=== PATIENT | male | born 1935 | race African-American/Black ===

== ENCOUNTER 2019-02-18 04:04 | Inpatient (IN) | payer MEDICARE ==
[2019-02-18] MEDS ORDERED: methylPREDNISolone Sod Succ/PF 125 MG/2 ML VIAL ONE (04:22)
[2019-02-18] MEDS ORDERED: diphenhydrAMINE 50 MG/ML VIAL ONE (04:22)
[2019-02-18] MEDS ORDERED: Famotidine/PF 20 mg/2ml Vial ONE (04:23)
[2019-02-18] MEDS ORDERED: EPINEPHrine 1 MG/ML AMP ONE (04:27)
[2019-02-18] MEDS ORDERED: Succinylcholine Chloride 20 MG/ML 10 ml SYRINGE FS ONE (04:36)
[2019-02-18] MEDS ORDERED: Propofol 1,000 MG/100 ML VIAL IV ONE (04:42)
[2019-02-18] MEDS ORDERED: Fentanyl 100 MCG/2 ML VIAL ONE ×2 (05:04→05:17)
[2019-02-18 05:09] LABS: Actual Bicarbonate (HCO3a) 19.1 mEq/L (22-28); Analyzer IN Cardio ER; CO2 Tension 33.2 mmHg (35.0-45.0); Calcium, Ionized 1.18 mmol/L (1.12-1.30); Carboxyhemoglobin (COHb) 9.4 gm% (0.0-3.0); Hemoglobin (Hb) 15.2 g/dL (14.0-18.0); O2 Tension (PaO2) 256.1 mmHg (> 60.0); Potassium - ABG Lab 3.85 mmol/L (3.70-5.30); pH, Arterial 7.38 (7.35-7.45)
[2019-02-18 05:12] LABS: Puncture Site LRA
[2019-02-18] MEDS ORDERED: Lorazepam 2 MG/ML VIAL ONE (05:13)
[2019-02-18] MEDS ORDERED: fentaNYL Citrate/PF 2,000 MCG in Sodium Chloride 0.9% 60 ML IV SCH (05:17)
[2019-02-18 05:20] LABS: #Basophils 0.1 thou/uL (0.0-0.2); #Lymphocytes 1.5 thou/uL (1.20-3.40); #Monocytes 0.6 thou/uL (0.11-0.59); #Neutrophils 5.4 thou/uL (1.40-6.50); %Basophils 1.1 % (0.0-1.0); %Eosinophils 0.3 % (0.0-10.0); %Lymphocytes 19.9 % (21.0-51.0); %Monocytes 8.2 % (0.0-10.0); %Neutrophils 70.5 % (42.0-75.0); Hemoglobin 14.6 g/dL (14.0-18.0); Mean Corpuscular HGB CONC 31.4 g/dL (32.0-36.0); Mean Corpuscular Hemoglobin 23.7 pg (27.0-31.0); Mean Corpuscular Volume 75.7 fL (78.0-98.0); Mean Platelet Volume 9.7 fL (7.4-10.4); Platelet Count 257 thou/uL (130-400); RBC Distribution Width 13.7 % (11.5-14.5); Red Blood Cell (RBC) Count 6.17 mill/uL (4.70-6.10); White Blood Cell (WBC) Count 7.6 thou/uL (4.8-10.8)
[2019-02-18 05:35] LABS: ALT (SGPT) 9 U/L (8-55); AST (SGOT) 9 U/L (5-34); Albumin 3.5 g/dL (3.4-4.8); Alkaline Phosphatase 62 U/L (40-150); Anion Gap 13 mmol/L (10-20); BUN (Urea Nitrogen) 27 mg/dL (8.4-25.7); Bilirubin, Total 0.4 mg/dL (0.2-1.2); Calc. Creatinine Clearance 0 mL/min (70-130); Carbon Dioxide 20 mmol/L (23-31); Chloride 106 mmol/L (98-107); Estimated GFR-MDRD 68; Globulin 3.5 g/dL (2.4-3.5); Glucose 144 mg/dL (83-110); Potassium 4.1 mmol/L (3.5-5.1); Sodium 135 mmol/L (136-145)
[2019-02-18] MEDS ORDERED: Acetaminophen 325 MG TAB PO PRN (06:15)
[2019-02-18] MEDS ORDERED: HumaLOG 300 UNITS/3 ML VIAL SC PRN (06:20)
[2019-02-18] MEDS ORDERED: Dextrose 50% Abboject 50 ML SYRINGE SLOW IVP PRN (06:20)
[2019-02-18] MEDS ORDERED: Dextrose 5% in Water 1,000 ML IV PRN (06:20)
[2019-02-18] MEDS ORDERED: Morphine 2 MG/ML SYRINGE SLOW IVP PRN (06:28)
[2019-02-18] MEDS ORDERED: Lorazepam 2 MG/ML VIAL SLOW IVP PRN (06:28)
[2019-02-18] MEDS ORDERED: Fentanyl BOLUS 250 ML IVPB PRN (06:28)
[2019-02-18] MEDS ORDERED: Propofol BOLUS 1,000 MG/100 ML VIAL IV PRN (06:28)
[2019-02-18] MEDS ORDERED: DISCONTINUE PREVIOUS NARCOTIC PAIN MEDICATIONS AND BENZODIAZEPINES FS SCH (06:28)
[2019-02-18 06:38] VITALS: BMI 29.6
--- NOTE | 2019-02-18 07:04 | HP ---
CHIEF COMPLAINT: Swelling of the tongue. HISTORY OF PRESENT ILLNESS: The patient is an 83-year-old male who woke up this morning around 4, woke his daughter up and started to have significant amount of tongue swelling. According to the patient's daughter, he had no trouble breathing. However, the patient's daughter drove him to the ER. In the ER, he was given IV Pepcid, IV steroids. He was given IV Benadryl and at this time given significant swelling of his tongue, the patient was intubated for precautionary reasons. I was told that the patient had no respiratory distress; however given the amount of swelling for safety purposes he was intubated. The patient's daughter does not recall starting of any new medications. She does state that he is on an VLADIMIR inhibitor; however, he takes it normally in the morning. Also, the patient has an allergy to barbecue sauce, which he gets a similar reaction. PAST MEDICAL HISTORY: Limited since the patient the patient's daughter is not really aware of all his medical history. She did say that he is a diabetic and he has high blood pressure and high cholesterol. PAST SURGICAL HISTORY: He denies any surgical history. ALLERGIES: HE IS ALLERGIC TO ASPIRIN AND GRAPEFRUIT. MEDICATION: The patient's family does not know the list. There are no records in the computer. I have asked the family to bring in his medication list. REVIEW OF SYSTEMS: Unable to obtain. SOCIAL HISTORY: According to the family, they deny history of drinking or drug use. He is a full code. Lives with the family. However, he does smoke half a pack a day. LABORATORY RESULTS: WBC of 7.6, hemoglobin of 14.6, hematocrit of 46.7, his platelets are 257. Chemistry: Sodium of 135, potassium of 4.1, BUN of 27, creatinine of 1.23, glucose of 144, troponin is less than 1. IMAGING: The patient did have a chest x-ray and upon my interpretation, the patient does have some mild vascular congestion and also I do see a his ET tube, which is above the selena. PHYSICAL EXAMINATION: VITAL SIGNS: Are as of the following; temperature of temperature of 98.8, heart rate of 120, blood pressure of 190/70 and oxygen saturation 98%. GENERAL: He is awake, intubated. HEENT: Normocephalic, atraumatic. No lymphadenopathy noted. Tongue appears to be significantly swollen. Pupils are equal and reactive to light. LUNGS: Mild rhonchi heard all over. CV: S1 and S2 present. No murmurs, rubs, or gallops. ABDOMEN: Soft and nontender. Bowel sounds present x2. EXTREMITIES: No edema. Pedal pulses present x2. NEUROVASCULAR: The patient is moving all 4 extremities and he is awake, appears to be very agitated. SKIN: No cuts, lesions, or bruises noted. ASSESSMENT AND PLAN: The patient is a very pleasant 83-year-old male who presents to the hospital for angioedema. 1. Acute respiratory failure. The patient was intubated for airway protection given his significant amount of swelling. The patient currently is on propofol and fentanyl. We will continue that. We will also start the patient on some DuoNeb. He did have some rhonchi in his lungs. 2. Angioedema, possibly secondary to lisinopril. I have to ask the family to bring in all his medications and if he is on lisinopril, we will have to discontinue that. 3. Diabetes. We will put the patient on sliding scale insulin. 4. Deep venous thrombosis prophylaxis. We will put the patient on subcutaneous Lovenox. Job ID: [id number]
[2019-02-18 07:18] LABS: Actual Bicarbonate (HCO3a) 17.1 mEq/L (22-28); Base Excess (BEa) -8.2 mEq/L (-2.0 to +3.0); CO2 Tension 34.6 mmHg (35.0-45.0); Calcium, Ionized 1.14 mmol/L (1.12-1.30); Carboxyhemoglobin (COHb) 6.2 gm% (0.0-3.0); Hemoglobin (Hb) 13.8 g/dL (14.0-18.0); Potassium - ABG Lab 3.65 mmol/L (3.70-5.30); pH, Arterial 7.31 (7.35-7.45)
[2019-02-18 07:25] LABS: Puncture Site RB
--- NOTE | 2019-02-18 07:54 | RAD ---
RADIOGRAPH CHEST 1 VIEW: DATE: 02/18/2019 TIME: 5:13 AM HISTORY: 83-year-old male with respiratory failure. Status post intubation COMPARISON: 12/16/2005 FINDINGS: The following are all new findings since the prior study: Endotracheal tube with distal tip overlying mid thoracic trachea. Esophagogastric tube with distal ti p curled at fundus of stomach. Subsegmental atelectasis at the bilateral central lower lung zones. No pulmonary edema. This is supine positioning, insensitive for pneumothorax detection. IMPRESSION: 1. Status post intubation with endotracheal tube and esophagogastric tube. 2. Extensive bibasilar subsegmental atelectasis.
[2019-02-18] MEDS ORDERED: methylPREDNISolone Sod Succ 40 MG VIAL IVP SCH (09:00)
--- NOTE | 2019-02-18 10:36 | CON ---
DATE OF CONSULTATION: HISTORY OF PRESENT ILLNESS: An 83-year-old gentleman, in the ICU bed 11, presented last night with progressive tongue and mouth swelling. Daughter is at the bedside. She states he sees Dr. Obrien, additionally sees [facility]. He is relatively healthy. Smokes maybe half pack a day. Apparently, had similar symptoms in the past, which was felt to be due to barbecue sauce. Unclear what transpired in the ER, but I guess because of progressive respiratory failure, he was intubated. He received fentanyl, Ativan, Diprivan, Amidate 20 paralytic, Solu-Medrol 125. He was intubated. Since his condition worsened apparently. He is now on the vent. Sedated, though he is not responsive, sedation is being just withheld. PAST MEDICAL HISTORY: Diabetes and hypertension. PAST SURGICAL HISTORY: None. His list of medicine includes 1. Lisinopril/hydrochlorothiazide 20/12.5 a day. 2. Plavix. 3. Aspirin. 4. Metformin. 5. Simvastatin 20. Otherwise, no previous allergies except for aspirin . REVIEW OF SYSTEMS: Otherwise unobtainable. He is intubated on the vent. PHYSICAL EXAMINATION: VITAL SIGNS: Pulse 74, blood pressure 127/80 sats 100, respiratory rate 16. CHEST: Decreased breath sounds. No wheezing. CARDIAC: Normal S1, S2. No gallops. ABDOMEN: No mass. PO2 is 61, pCO2 of 24, pH of 7.31 at rate of 16, 60%, pressure support 10, PEEP of 5. White count 7000, H and H unremarkable. Lytes, creatinine 1.23. IMPRESSION: 1. Angioedema, possibly VLADIMIR related. 2. Hypertension. 3. Diabetes. 4. On Plavix, probably has peripheral vascular disease. PLAN: We will try and get additional information from family. In the meantime, looks like his swelling appears to have decreased. We will leave intubated overnight. Continue supportive care. Consider ENT evaluation. Avoid VLADIMIR. This is a 45-minute critical care time. Job ID: [id number]
[2019-02-18] MEDS: Dexamethasone 4 mg/ml Vial SLOW IVP SCH ×3 (10:43→21:33)
[2019-02-18] MEDS: Enoxaparin Sodium 40 MG/0.4 ML SYRINGE SC SCH (10:43)
[2019-02-18] MEDS: Propofol 1,000 MG/100 ML VIAL IV PRN (12:48)
--- NOTE | 2019-02-18 14:02 | PDOC.PN ---
- Subjective Encounter Start Date: 02/18/19 Encounter Start Time: 13:57 Patient seen and examined - Objective Resuscitation Status - Order Detail: 02/18/19 06:15 Resuscitation Status Routine Resuscitation Status: FULL: Full Resuscitation Vital Signs & Weight: Vital Signs (12 hours) Temp Pulse Resp BP BP Pulse Ox 02/18/19 12:41 68 100/47 L 02/18/19 10:35 66 109/58 L 02/18/19 07:52 78 106/63 02/18/19 06:15 90 135/66 02/18/19 06:14 97.8 F 85 24 H 135/66 100 Weight Admit Weight 183 lb 6.793 oz Weight 183 lb 6.793 oz Most Recent Monitor Data Heart Rate from ECG 68 NIBP 103/50 NIBP BP-Mean 67 Respiration from ECG 18 SpO2 100 Result Diagrams: 02/18/19 04:58 02/18/19 04:58 Phys Exam - Physical Examination Constitutional: NAD HEENT: PERRLA, moist MMs intubated Neck: no nodes, no JVD, supple Respiratory: no wheezing, no rales, no rhonchi Cardiovascular: RRR, no significant murmur, no rub Gastrointestinal: soft, non-tender, no distention Musculoskeletal: no edema, pulses present Dx/Plan (1) Angioedema Code(s): T78.3XXA - ANGIONEUROTIC EDEMA, INITIAL ENCOUNTER Status: Acute (2) Hypertension Code(s): I10 - ESSENTIAL (PRIMARY) HYPERTENSION Status: Acute - Plan * remains intubated * on steroids * will do IVFs while patient is intubated for now * SBT in AM * no other changes in plan of care * case and plan d/w patient's son at length via phone, Chinedu [phone], he understood and agreed with this plan.
[2019-02-18] MEDS ORDERED: Dexamethasone 4 mg/ml Vial SLOW IVP SCH (23:00)
[2019-02-19] MEDS: Propofol 1,000 MG/100 ML VIAL IV PRN (02:05)
[2019-02-19] MEDS: Famotidine/PF 20 mg/2ml Vial SLOW IVP SCH (04:53)
[2019-02-19 06:09] LABS: Anion Gap 12 mmol/L (10-20); BUN (Urea Nitrogen) 26 mg/dL (8.4-25.7); Calc. Creatinine Clearance 66 mL/min (70-130); Calcium 8.8 mg/dL (7.8-10.44); Carbon Dioxide 20 mmol/L (23-31); Chloride 110 mmol/L (98-107); Estimated GFR-MDRD 86; Glucose 150 mg/dL (83-110); Potassium 4.1 mmol/L (3.5-5.1); Sodium 138 mmol/L (136-145)
[2019-02-19 06:21] LABS: #Lymphocytes 0.5 thou/uL (1.20-3.40); #Monocytes 0.5 thou/uL (0.11-0.59); #Neutrophils 6.6 thou/uL (1.40-6.50); %Eosinophils 0.2 % (0.0-10.0); %Lymphocytes 6.9 % (21.0-51.0); %Monocytes 6.7 % (0.0-10.0); %Neutrophils 86.1 % (42.0-75.0); Mean Corpuscular HGB CONC 31.5 g/dL (32.0-36.0); Mean Corpuscular Hemoglobin 23.5 pg (27.0-31.0); Mean Corpuscular Volume 74.6 fL (78.0-98.0); Mean Platelet Volume 9.9 fL (7.4-10.4); Platelet Count 230 thou/uL (130-400); RBC Distribution Width 13.6 % (11.5-14.5); Red Blood Cell (RBC) Count 5.56 mill/uL (4.70-6.10); White Blood Cell (WBC) Count 7.7 thou/uL (4.8-10.8)
[2019-02-19 07:47] LABS: Actual Bicarbonate (HCO3a) 22.3 mEq/L (22-28); CO2 Tension 36.6 mmHg (35.0-45.0); Calcium, Ionized 1.21 mmol/L (1.12-1.30); Carboxyhemoglobin (COHb) 1.1 gm% (0.0-3.0); O2 Tension (PaO2) 214.8 mmHg (> 60.0); Potassium - ABG Lab 4.13 mmol/L (3.70-5.30)
[2019-02-19 07:50] LABS: Puncture Site RB
[2019-02-19] MEDS ORDERED: DC Sedation Protocol FS ONE (08:35)
[2019-02-19] MEDS ORDERED: Fluconazole In NaCl,Iso-Osm 100 MG in Premix Bag 1 BAG IVPB SCH (09:00)
[2019-02-19] MEDS ORDERED: Dexamethasone 4 mg/ml Vial SLOW IVP SCH (09:00)
[2019-02-19] MEDS: Enoxaparin Sodium 40 MG/0.4 ML SYRINGE SC SCH (09:46)
[2019-02-19] MEDS: Fluconazole In NaCl,Iso-Osm 100 MG in Admixture Fee 1 EACH IVPB SCH (09:58)
--- NOTE | 2019-02-19 10:01 | PRG ---
DATE OF SERVICE: 02/19/2019 SUBJECTIVE: An 83-year-old gentleman, sedation withheld. He is awake, alert, and responsive. His tongue is less swollen. His endotracheal tube cuff was deflated. He has a leak suggesting probably not much edema in the back of the throat. OBJECTIVE: CHEST: Reveals no wheezing or crackles. CARDIAC: Sinus tach. ABDOMEN: Soft. VITAL SIGNS: Blood pressure 130/60, saturations are 100%, respirations are 18, and pulse 80. LABORATORY DATA: His lab otherwise shows white count 7000, H and H unremarkable. Platelet count is normal. His PO2 is 214, pCO2 of 36, pH 7.40 at a rate of 10, and PEEP of 5. Lytes are normal. IMPRESSION: 1. Status post angioedema, felt to be secondary to VLADIMIR. 2. Hypertension. 3. Diabetes. PLAN: Avoid VLADIMIR. Wean and extubate. Supportive care, PT. One-half hour of critical care time. Job ID: [id number]
--- NOTE | 2019-02-19 10:10 | RAD ---
CHEST 1 VIEW: COMPARISON: 02/18/2019. HISTORY: Ventilated patient. Respiratory distress. FINDINGS: Interval removal of endotracheal and orogastric tube. Chronic changes in the lung parenchyma. No pn eumothorax. IMPRESSION: Chronic change of the lung parenchyma. POS: OFF
[2019-02-19] MEDS ORDERED: diphenhydrAMINE 50 MG/ML VIAL IVP PRN (14:37)
--- NOTE | 2019-02-19 14:43 | PDOC.PN ---
- Subjective Encounter Start Date: 02/19/19 Encounter Start Time: 14:39 Patient seen and examined, no new issues, extubated this AM, says he feels well. - Objective Resuscitation Status - Order Detail: 02/18/19 06:15 Resuscitation Status Routine Resuscitation Status: FULL: Full Resuscitation Vital Signs & Weight: Vital Signs (12 hours) Temp Pulse Resp BP Pulse Ox 02/19/19 11:20 102 H 21 H 98 02/19/19 08:35 98 02/19/19 08:00 100 02/19/19 07:30 84 130/61 02/19/19 05:57 16 02/19/19 04:00 16 02/19/19 03:00 98.8 F Weight Admit Weight 183 lb 6.793 oz Weight 183 lb 6.793 oz Most Recent Monitor Data Heart Rate from ECG 80 NIBP 130/58 NIBP BP-Mean 82 Respiration from ECG 21 SpO2 97 I&O: 02/18/19 02/19/19 02/20/19 06:59 06:59 06:59 Intake Total 243.2 Output Total 1200 37 Balance -956.8 -37 Result Diagrams: 02/19/19 05:17 02/19/19 05:17 Additional Labs: Accuchecks 02/19/19 02/19/19 02/19/19 12:13 06:07 00:35 POC Glucose 148 H 143 H 142 H 02/18/19 02/18/19 18:05 14:32 POC Glucose 136 H 149 H Phys Exam - Physical Examination Constitutional: NAD HEENT: PERRLA, moist MMs, sclera anicteric Neck: no nodes, no JVD, supple Respiratory: no wheezing, no rales, no rhonchi Cardiovascular: RRR, no significant murmur, no rub Gastrointestinal: soft, non-tender, no distention Musculoskeletal: no edema, pulses present Dx/Plan (1) Angioedema Code(s): T78.3XXA - ANGIONEUROTIC EDEMA, INITIAL ENCOUNTER Status: Acute (2) Hypertension Code(s): I10 - ESSENTIAL (PRIMARY) HYPERTENSION Status: Acute - Plan * dexamethasone decreased * will start IV benadryl q8hrs PRN for allerigc reaction, patient did have a full body rash this am with pruritis? * extubated today, monitor in ICU for now, resume diet slowly * no other changes in plan of care for now * case and plan d/w patient at length, he understood and agreed with this plan.
[2019-02-20] MEDS: Famotidine/PF 20 mg/2ml Vial SLOW IVP SCH (04:54)
[2019-02-20] MEDS: Enoxaparin Sodium 40 MG/0.4 ML SYRINGE SC SCH (08:20)
[2019-02-20] MEDS: Fluconazole In NaCl,Iso-Osm 100 MG in Admixture Fee 1 EACH IVPB SCH (08:21)
[2019-02-20] MEDS ORDERED: DC Sedation Protocol FS ONE (08:50)
[2019-02-20] MEDS ORDERED: metFORMIN 500 MG TAB PO SCH (09:00)
--- NOTE | 2019-02-20 09:53 | PDOC.PN ---
- Subjective Encounter Start Date: 02/20/19 Encounter Start Time: 09:52 Patient seen and examined, doing better, no new issues. - Objective Resuscitation Status - Order Detail: 02/18/19 06:15 Resuscitation Status Routine Resuscitation Status: FULL: Full Resuscitation Vital Signs & Weight: Vital Signs (12 hours) Temp Pulse Resp Pulse Ox 02/20/19 08:00 97.6 F 02/20/19 07:53 98 02/20/19 06:45 98 02/20/19 06:44 67 19 100 02/20/19 04:00 98.0 F 02/20/19 00:00 98.2 F Weight Admit Weight 183 lb 6.793 oz Weight 183 lb 6.793 oz Most Recent Monitor Data Heart Rate from ECG 77 NIBP 159/71 NIBP BP-Mean 100 Respiration from ECG 26 SpO2 100 I&O: 02/19/19 02/20/19 02/21/19 06:59 06:59 06:59 Intake Total 243.2 685.3 Output Total 1200 1366 0 Balance -956.8 -680.7 0 Result Diagrams: 02/19/19 05:17 02/19/19 05:17 Additional Labs: Accuchecks 02/20/19 02/20/19 02/20/19 08:20 05:43 00:31 POC Glucose 188 H 104 134 H 02/19/19 02/19/19 19:07 12:13 POC Glucose 146 H 148 H Phys Exam - Physical Examination Constitutional: NAD HEENT: PERRLA, moist MMs Neck: no nodes, no JVD Respiratory: no wheezing, no rales, no rhonchi, clear to auscultation bilateral Cardiovascular: RRR, no significant murmur, no rub Gastrointestinal: soft, non-tender, no distention Musculoskeletal: no edema, pulses present Dx/Plan (1) Angioedema Code(s): T78.3XXA - ANGIONEUROTIC EDEMA, INITIAL ENCOUNTER Status: Acute (2) Hypertension Code(s): I10 - ESSENTIAL (PRIMARY) HYPERTENSION Status: Acute - Plan * advance diet slowly * start ARB for BP for now, no more ACEi * move to floor out of ICU * cont IV steroids * possible DC in 24-48hrs depending on patient condition * case and plan d/w pt at length, he understood and agreed with this plan
--- NOTE | 2019-02-20 10:03 | PRG ---
DATE OF SERVICE: 02/20/2019 SUBJECTIVE: This morning, he is awake, alert, and responsive. He is eager to go home. OBJECTIVE: VITAL SIGNS: Blood pressure 159/71, saturations are 98% on room air, respiratory rate 18. HEENT: His tongue is less swollen. The whitish patches are less prominent. CHEST: No wheezing or crackles. CARDIAC: Normal S1 and S2. No gallops. ASSESSMENT: 1. Angioedema, probably. 2. Possibly thrush. 3. Hypertension. PLAN: He can be discharged home. No longer at least take VLADIMIR. He can probably go home on Norvasc. Follow up with his primary care physician. Job ID: [id number]
[2019-02-20] MEDS: Fluconazole 100 MG TAB PO SCH (10:14)
[2019-02-20] MEDS: metFORMIN 500 MG TAB PO SCH ×2 (10:16→20:11)
[2019-02-20] MEDS: Amlodipine 5 MG TAB PO SCH (10:17)
[2019-02-21] MEDS: Famotidine/PF 20 mg/2ml Vial SLOW IVP SCH (05:24)
[2019-02-21] MEDS: metFORMIN 500 MG TAB PO SCH (08:26)
[2019-02-21] MEDS: Enoxaparin Sodium 40 MG/0.4 ML SYRINGE SC SCH (08:26)
[2019-02-21] MEDS: Amlodipine 5 MG TAB PO SCH (08:26)
[2019-02-21] MEDS: Fluconazole 100 MG TAB PO SCH (08:26)
--- NOTE | 2019-02-21 08:59 | PRG ---
DATE OF SERVICE: 02/21/2019 SUBJECTIVE: This morning, he is much better. His tongue is less swollen. The yeast on his throat also looks much better. OBJECTIVE: VITAL SIGNS: Blood pressure is 164/74, pulse 72, temperature 98. CHEST: Decreased breath sounds. No wheezing. CARDIAC: Normal S1 and S2. No gallops. ABDOMEN: No masses. IMPRESSION: Angioedema secondary to VLADIMIR, respiratory failure improved, thrush. He can be discharged home on blood pressure medication. Obviously avoid VLADIMIR. Job ID: [id number]
--- NOTE | 2019-02-21 09:54 | PDOC.PN ---
- Subjective Encounter Start Date: 02/21/19 Encounter Start Time: 12:10 Subjective: Patient reports feeling back to normal. No tongue swelling. No trouble -: breathing or swallowing. Ready to go home. - Objective Resuscitation Status - Order Detail: 02/18/19 06:15 Resuscitation Status Routine Resuscitation Status: FULL: Full Resuscitation MAR Reviewed: Yes Vital Signs & Weight: Vital Signs (12 hours) Temp Pulse Resp BP BP Pulse Ox 02/21/19 08:26 72 164/74 H 02/21/19 08:20 93 L 02/21/19 08:07 98.2 F 72 18 164/74 H 93 L Weight Admit Weight 183 lb 6.793 oz Weight 183 lb 6.793 oz Most Recent Monitor Data Heart Rate from ECG 106 NIBP 154/83 NIBP BP-Mean 106 Respiration from ECG 26 SpO2 100 I&O: 02/20/19 02/21/19 02/22/19 06:59 06:59 06:59 Intake Total 685.3 2120 Output Total 1366 175 Balance -680.7 1945 Result Diagrams: 02/19/19 05:17 02/19/19 05:17 Additional Labs: Accuchecks 02/21/19 02/20/19 02/20/19 04:46 19:55 16:41 POC Glucose 93 161 H 119 H Phys Exam - Physical Examination Constitutional: NAD HEENT: moist MMs, oral pharynx no lesions tongue normal in size, no edema in mouth or lips Respiratory: no wheezing, no rales, no rhonchi, clear to auscultation bilateral Cardiovascular: RRR, no significant murmur Gastrointestinal: soft, positive bowel sounds Neurological: non-focal, moves all 4 limbs Psychiatric: normal affect, A&O x 3 Dx/Plan (1) Angioedema Code(s): T78.3XXA - ANGIONEUROTIC EDEMA, INITIAL ENCOUNTER Status: Acute Comment: markedly improved, due to VLADIMIR-I, cleared to d/c home by Dr. Chamorro (2) Hypertension Code(s): I10 - ESSENTIAL (PRIMARY) HYPERTENSION Status: Chronic Qualifiers: Hypertension type: essential hypertension Qualified Code(s): I10 - Essential (primary) hypertension (3) Thrush, oral Code(s): B37.0 - CANDIDAL STOMATITIS Status: Acute (4) Diabetes mellitus type 2 in nonobese Code(s): E11.9 - TYPE 2 DIABETES MELLITUS WITHOUT COMPLICATIONS Status: Chronic Comment: on Metformin (5) Hyperlipidemia Code(s): E78.5 - HYPERLIPIDEMIA, UNSPECIFIED Status: Chronic Comment: holding simvastatin while on Fluconazole - Plan cont current plan of care can d/c home -: stop VLADIMIR-I, f/u with PCP for alternative BP treatment * . - Discharge Encounter end time: 12:20
[2019-02-21] MEDS ORDERED: Clopidogrel Bisulfate 75 MG TAB PO SCH (11:30)
[2019-02-21 12:10] VITALS: TEMP 97.8
[2019-02-21 14:41] VITALS: BP 164/79
[2019-02-22] MEDS ORDERED: Clopidogrel Bisulfate 75 MG TAB PO SCH (09:00)
--- NOTE | 2019-02-22 11:39 | DIS ---
DATE OF ADMISSION: 02/18/2019 DATE OF DISCHARGE: 02/21/2019 PRIMARY CARE PHYSICIAN: Dr. Jesus Manuel Obrien. REASON FOR ADMISSION: Angioedema. DIAGNOSES AT DISCHARGE: 1. Angioedema due to VLADIMIR inhibitor, resolved. 2. Hypertension. 3. Oral thrush. 4. Diabetes mellitus type 2. 5. Hyperlipidemia. PROCEDURES: None. CONSULTATIONS: Pulmonology, Dr. Chamorro. SUMMARY OF HOSPITAL COURSE: This is an 83-year-old -[place] male, who started having significant amount of tongue swelling early in the morning. No trouble breathing. He was driven to the ER. He was given IV Pepcid, IV steroids, he was also given IV Benadryl. His tongue was noted to be severely swollen. Due to the risk of airway, he was intubated. No respiratory distress at the time of intubation. The patient is in the ICU, Dr. Chamorro was consulted. The patient improved during hospitalization. He was successfully extubated. The angioedema completely resolved. His VLADIMIR inhibitors were held since admission. He had had one episode of this before that was thought to be due to barbecue sauce which is now thought to be most likely VLADIMIR inhibitor causing this is being discontinued. He has been told not to ever to take VLADIMIR inhibitor or ARB again. The patient did have some thrush noted during hospitalization, started on Diflucan by Dr. Chamorro. He was doing well on the day of discharge, was cleared for discharge by Pulmonology. DISCHARGE MANAGEMENT: Location: Discharged to home. FOLLOWUP: Follow up with Dr. Obrien in 7 days for blood pressure management. ACTIVITY: As tolerated. DIET: Healthy heart low-sodium diet. MEDICATIONS: 1. Fluconazole 100 mg daily, 7 tabs. 2. Continue amlodipine 5 mg daily. 3. Clopidogrel 75 mg daily. 4. Metformin 1000 mg twice a day. 5. Simvastatin 20 mg daily. Job ID: [id number]
== END 2019-02-21 15:24 | disposition home or self-care (01) | DRG 915 ==
LOC: ERS 04:04 → CCU 05:00 → T4-B 06:10
PROVIDERS: ADMIT Internal Medicine; ATTEND Internal Medicine
PROC: 0BH17EZ Insertion of Endotracheal Airway into Trachea, Via Natural or Artificial Opening (ICD-10-PCS; principal; 2019-02-18)
PROC: 5A1945Z Respiratory Ventilation, 24-96 Consecutive Hours (ICD-10-PCS; 2019-02-18)
DX: T78.3XXA Angioneurotic edema, initial encounter (principal); J96.00 Acute respiratory failure, unspecified whether with hypoxia or hypercapnia; B37.0 Candidal stomatitis; T46.4X5A Adverse effect of angiotensin-converting-enzyme inhibitors, initial encounter; I10 Essential (primary) hypertension; E11.9 Type 2 diabetes mellitus without complications; F17.210 Nicotine dependence, cigarettes, uncomplicated; E78.5 Hyperlipidemia, unspecified; Z88.8 Allergy status to other drugs, medicaments and biological substances; Z91.018 Allergy to other foods; Z79.84 Long term (current) use of oral hypoglycemic drugs; Z79.899 Other long term (current) drug therapy
CPT/HCPCS: 31500; 36415; 36416; 51702; 71045; 80048; 80053; 82805; 84484; 85025; 86850; 86900; 86901; 93005; 94002; 94003; 94640; 96361; 96365; 96368; 96372; 96374; 96375; J0171; J1100; J1200; J1450; J1650; J2060; J2704; J2930; J3010; J3490; J7620; S0028

== ENCOUNTER 2022-03-26 17:44 | Inpatient (IN) | payer MEDICARE, OTHER ==
[2022-03-26 18:27] LABS: #Basophils 0.1 thou/uL (0.0-0.2); #Lymphocytes 0.4 thou/uL (1.20-3.40); #Monocytes 0.6 thou/uL (0.11-0.59); #Neutrophils 3.4 thou/uL (1.40-6.50); %Basophils 1.2 % (0.0-1.0); %Eosinophils 0.2 % (0.0-10.0); %Lymphocytes 9.4 % (21.0-51.0); %Neutrophils 76.2 % (42.0-75.0); Hemoglobin 13.5 g/dL (14.0-18.0); Mean Corpuscular HGB CONC 32.1 g/dL (32.0-36.0); Mean Corpuscular Hemoglobin 23.7 pg (27.0-31.0); Platelet Count 182 thou/uL (130-400); RBC Distribution Width 13.1 % (11.5-14.5); Red Blood Cell (RBC) Count 5.71 mill/uL (4.70-6.10); White Blood Cell (WBC) Count 4.4 thou/uL (4.8-10.8)
[2022-03-26 18:39] LABS: MDiff Complete? YES; Microcytosis SLIGHT = 6-15 cells (100X) (0-5/hpf); Platelet Morphology Comment Appears Adequate; Polychromasia SLIGHT = 2-3 cells (100X) (0-2/hpf)
[2022-03-26 18:47] LABS: ALT (SGPT) 9 U/L (8-55); AST (SGOT) 32 U/L (5-34); Albumin 3.7 g/dL (3.4-4.8); Alkaline Phosphatase 76 U/L (40-110); Anion Gap 15 mmol/L (10-20); BUN (Urea Nitrogen) 30 mg/dL (8.4-25.7); Bilirubin, Total 0.3 mg/dL (0.2-1.2); Calc. Creatinine Clearance 0 mL/min (70-130); Calcium 9.3 mg/dL (7.8-10.44); Carbon Dioxide 22 mmol/L (23-31); Chloride 105 mmol/L (98-107); Estimated GFR 41; Globulin 4.4 g/dL (2.4-3.5); Glucose 132 mg/dL (83-110); Lipase 19 U/L (8-78); Potassium 4.2 mmol/L (3.5-5.1); Protein, Total 8.1 g/dL (5.8-8.1); Sodium 138 mmol/L (136-145)
[2022-03-26 19:07] LABS: Bacteria/HPF None Seen HPF (None Seen); Bilirubin Negative (Negative); Blood, Urine 1+ (Negative); Clarity Clear (Clear); Glucose, Urine (Dipstick) Normal (Negative); Ketone, Urine Negative (Negative); Leukocyte Negative Leu/uL (Negative); Nitrite Negative (Negative); Protein, Urine (Dipstick) 30 mg/dL (Neg-Trace); RBC/HPF 0-3 HPF (0-3); Specific Gravity, Urine 1.021 (1.002-1.036); Squamous Epithelial 0-3 HPF (0-3); Urobilinogen Normal mg/dL (Less than 2); WBC/HPF 0-3 HPF (0-3)
[2022-03-26] MEDS ORDERED: Sodium Chloride 0.9% 1,000 ML IV SCH (19:30)
[2022-03-26] MEDS ORDERED: Nitroglycerin 2% Ointment 1 INCH/1 GM Packet ONE (20:15)
[2022-03-26] MEDS ORDERED: hydrALAZINE 20 MG/ML VIAL ONE (20:15)
[2022-03-26] MEDS ORDERED: Acetaminophen 650 MG Suppository PR PRN ×2 (20:18→20:58)
[2022-03-26] MEDS ORDERED: Ondansetron ODT 4 MG TAB PO PRN (20:18)
[2022-03-26] MEDS ORDERED: Ondansetron PF 4 MG/2 ML Vial IVP PRN (20:18)
[2022-03-26] MEDS ORDERED: hydrALAZINE 20 MG/ML VIAL SLOW IVP PRN (20:23)
[2022-03-26] MEDS ORDERED: hydrALAZINE 20 MG/ML VIAL SLOW IVP SCH (20:30)
[2022-03-26 20:53] LABS: SARS-CoV-2 NAA Rapid Test DETECTED (NotDetected)
[2022-03-26] MEDS ORDERED: HumaLOG 300 UNITS/3 ML VIAL SC PRN ×2 (21:09)
[2022-03-26] MEDS ORDERED: Dextrose 5% in Water 1,000 ML IV PRN (21:09)
[2022-03-26] MEDS ORDERED: Dextrose 50% Abboject 50 ML SYRINGE SLOW IVP PRN (21:09)
[2022-03-26] MEDS ORDERED: Albuterol 200 PUFF (6.7GM INHALER) INH PRN (22:30)
[2022-03-26] MEDS: Sodium Chloride 0.9% 1,000 ML IV SCH (22:59)
[2022-03-27 06:20] LABS: #Lymphocytes 0.7 thou/uL (1.20-3.40); #Monocytes 0.7 thou/uL (0.11-0.59); #Neutrophils 4.5 thou/uL (1.40-6.50); %Basophils 0.5 % (0.0-1.0); %Eosinophils 0.2 % (0.0-10.0); %Lymphocytes 12.1 % (21.0-51.0); %Monocytes 11.7 % (0.0-10.0); %Neutrophils 75.4 % (42.0-75.0); Hemoglobin 13.8 g/dL (14.0-18.0); Mean Corpuscular Hemoglobin 23.4 pg (27.0-31.0); Mean Corpuscular Volume 75.3 fL (78.0-98.0); Platelet Count 173 thou/uL (130-400); RBC Distribution Width 13.3 % (11.5-14.5)
[2022-03-27 06:43] LABS: ALT (SGPT) 13 U/L (8-55); AST (SGOT) 50 U/L (5-34); Albumin 3.5 g/dL (3.4-4.8); Alkaline Phosphatase 71 U/L (40-110); Anion Gap 15 mmol/L (10-20); BUN (Urea Nitrogen) 24 mg/dL (8.4-25.7); Bilirubin, Total 0.3 mg/dL (0.2-1.2); Calc. Creatinine Clearance 0 mL/min (70-130); Calcium 8.8 mg/dL (7.8-10.44); Carbon Dioxide 22 mmol/L (23-31); Chloride 108 mmol/L (98-107); Estimated GFR 56; Glucose 144 mg/dL (83-110); Potassium 4.3 mmol/L (3.5-5.1); Protein, Total 7.5 g/dL (5.8-8.1); Sodium 141 mmol/L (136-145)
[2022-03-27] MEDS ORDERED: REMDESIVIR 200 MG in Sodium Chloride 0.9% 250 ML 210 ML IV SCH (09:00)
[2022-03-27] MEDS ORDERED: Ascorbic Acid 500 mg Chewable Tablet ONE (09:45)
[2022-03-27] MEDS ORDERED: Zinc Sulfate 220 MG CAP ONE (09:45)
[2022-03-27] MEDS ORDERED: Acetaminophen 325 MG TAB ONE (09:45)
[2022-03-27] MEDS ORDERED: Enoxaparin Sodium 30 MG/0.3 ML SYRINGE ONE (09:45)
[2022-03-27] MEDS: Acetaminophen 325 MG TAB PO PRN (10:07)
[2022-03-27] MEDS: Enoxaparin Sodium 30 MG/0.3 ML SYRINGE SC SCH (10:08)
[2022-03-27] MEDS: Ascorbic Acid 500 mg Chewable Tablet PO SCH (10:08)
[2022-03-27] MEDS: Cholecalciferol (Vitamin D3) 400 UNITS TAB PO SCH (10:08)
[2022-03-27] MEDS: Zinc Sulfate 220 MG CAP PO SCH (10:08)
[2022-03-27] MEDS: Sodium Chloride 0.9% 1,000 ML IV SCH ×2 (10:14→13:10)
[2022-03-27] MEDS ORDERED: Benzonatate 100 MG CAP ONE (10:33)
[2022-03-27] MEDS: Benzonatate 100 MG CAP PO PRN (10:36)
[2022-03-27] MEDS ORDERED: Amlodipine 5 MG TAB PO SCH (12:00)
[2022-03-27 12:36] VITALS: BMI 24.3
[2022-03-27] MEDS ORDERED: hydrALAZINE 20 MG/ML VIAL SLOW IVP PRN (22:44)
[2022-03-28] MEDS: hydrALAZINE 20 MG/ML VIAL SLOW IVP PRN ×2 (00:11→08:37)
[2022-03-28] MEDS: Benzonatate 100 MG CAP PO PRN (00:11)
[2022-03-28] MEDS: Sodium Chloride 0.9% 1,000 ML IV SCH ×3 (02:46→23:29)
[2022-03-28] MEDS: Acetaminophen 325 MG TAB PO PRN ×2 (03:46→20:56)
[2022-03-28] MEDS: Enoxaparin Sodium 30 MG/0.3 ML SYRINGE SC SCH (08:36)
[2022-03-28] MEDS: Clopidogrel Bisulfate 75 MG TAB PO SCH (08:36)
[2022-03-28] MEDS: Ascorbic Acid 500 mg Chewable Tablet PO SCH (08:36)
[2022-03-28] MEDS: Cholecalciferol (Vitamin D3) 400 UNITS TAB PO SCH (08:36)
[2022-03-28] MEDS: Zinc Sulfate 220 MG CAP PO SCH (08:36)
[2022-03-28] MEDS: Amlodipine 5 MG TAB PO SCH (08:37)
[2022-03-28] MEDS: REMDESIVIR 100 MG in Sodium Chloride 0.9% 250 ML 230 ML IV SCH (10:16)
[2022-03-28] MEDS: Benzonatate 100 MG CAP PO SCH ×3 (12:06→23:28)
[2022-03-28] MEDS: Carvedilol 3.125 MG TAB PO SCH (17:31)
[2022-03-29] MEDS: Benzonatate 100 MG CAP PO SCH ×3 (05:13→18:08)
[2022-03-29 07:10] LABS: #Lymphocytes 0.8 thou/uL (1.20-3.40); #Monocytes 0.4 thou/uL (0.11-0.59); #Neutrophils 2.4 thou/uL (1.40-6.50); %Basophils 0.1 % (0.0-1.0); %Eosinophils 0.6 % (0.0-10.0); %Lymphocytes 22.1 % (21.0-51.0); %Monocytes 10.5 % (0.0-10.0); %Neutrophils 66.7 % (42.0-75.0); Hemoglobin 12.5 g/dL (14.0-18.0); Mean Corpuscular HGB CONC 31.1 g/dL (32.0-36.0); Mean Corpuscular Hemoglobin 23.6 pg (27.0-31.0); Mean Corpuscular Volume 75.9 fL (78.0-98.0); Mean Platelet Volume 11.1 fL (7.4-10.4); Platelet Count 151 thou/uL (130-400); RBC Distribution Width 13.3 % (11.5-14.5); Red Blood Cell (RBC) Count 5.31 mill/uL (4.70-6.10); White Blood Cell (WBC) Count 3.7 thou/uL (4.8-10.8)
[2022-03-29 07:29] LABS: Anion Gap 12 mmol/L (10-20); BUN (Urea Nitrogen) 19 mg/dL (8.4-25.7); CRP (Inflammatory) 2.52 mg/dL (= or < 0.5); Calc. Creatinine Clearance 73 mL/min (70-130); Calcium 8.1 mg/dL (7.8-10.44); Carbon Dioxide 21 mmol/L (23-31); Chloride 113 mmol/L (98-107); Estimated GFR 86; Glucose 91 mg/dL (83-110); Potassium 3.9 mmol/L (3.5-5.1); Sodium 142 mmol/L (136-145)
[2022-03-29] MEDS: Cholecalciferol (Vitamin D3) 400 UNITS TAB PO SCH (08:44)
[2022-03-29] MEDS: Zinc Sulfate 220 MG CAP PO SCH (08:44)
[2022-03-29] MEDS: Ascorbic Acid 500 mg Chewable Tablet PO SCH (08:44)
[2022-03-29] MEDS: Amlodipine 5 MG TAB PO SCH (08:44)
[2022-03-29] MEDS: Clopidogrel Bisulfate 75 MG TAB PO SCH (08:44)
[2022-03-29] MEDS: Carvedilol 3.125 MG TAB PO SCH (08:44)
[2022-03-29] MEDS: Sodium Chloride 0.9% 1,000 ML IV SCH (08:45)
[2022-03-29] MEDS: Enoxaparin Sodium 30 MG/0.3 ML SYRINGE SC SCH (08:45)
[2022-03-29] MEDS: REMDESIVIR 100 MG in Sodium Chloride 0.9% 250 ML 230 ML IV SCH (10:55)
[2022-03-29] MEDS: Carvedilol 6.25 MG TAB PO SCH (18:08)
[2022-03-29] MEDS: Tamsulosin HCl 0.4 MG CAP PO SCH (21:31)
[2022-03-29] MEDS: Acetaminophen 325 MG TAB PO PRN (21:31)
[2022-03-30] MEDS: Benzonatate 100 MG CAP PO SCH ×5 (00:25→23:54)
[2022-03-30] MEDS: Clopidogrel Bisulfate 75 MG TAB PO SCH (09:13)
[2022-03-30] MEDS: Amlodipine 10 MG TAB PO SCH (09:13)
[2022-03-30] MEDS: Cholecalciferol (Vitamin D3) 400 UNITS TAB PO SCH (09:13)
[2022-03-30] MEDS: Ascorbic Acid 500 mg Chewable Tablet PO SCH (09:13)
[2022-03-30] MEDS: Enoxaparin Sodium 30 MG/0.3 ML SYRINGE SC SCH (09:14)
[2022-03-30] MEDS: Zinc Sulfate 220 MG CAP PO SCH (09:14)
[2022-03-30] MEDS: Carvedilol 6.25 MG TAB PO SCH ×2 (09:14→16:29)
[2022-03-30] MEDS: REMDESIVIR 100 MG in Sodium Chloride 0.9% 250 ML 230 ML IV SCH (09:14)
[2022-03-30] MEDS ORDERED: Benzonatate 100 MG CAP PO PRN (13:32)
[2022-03-30] MEDS: hydrALAZINE 20 MG/ML VIAL SLOW IVP PRN (18:05)
[2022-03-30] MEDS: Tamsulosin HCl 0.4 MG CAP PO SCH (21:23)
[2022-03-31] MEDS: Benzonatate 100 MG CAP PO SCH ×3 (06:04→18:12)
[2022-03-31 06:42] LABS: Anion Gap 14 mmol/L (10-20); BUN (Urea Nitrogen) 15 mg/dL (8.4-25.7); Calc. Creatinine Clearance 72 mL/min (70-130); Calcium 8.7 mg/dL (7.8-10.44); Carbon Dioxide 20 mmol/L (23-31); Chloride 110 mmol/L (98-107); Estimated GFR 86; Glucose 97 mg/dL (83-110); Potassium 3.4 mmol/L (3.5-5.1); Sodium 141 mmol/L (136-145)
[2022-03-31 07:24] LABS: Mean Corpuscular HGB CONC 30.8 g/dL (32.0-36.0); Mean Corpuscular Hemoglobin 23.4 pg (27.0-31.0); Mean Corpuscular Volume 75.9 fL (78.0-98.0); Mean Platelet Volume 11.1 fL (7.4-10.4); Platelet Count 159 thou/uL (130-400); RBC Distribution Width 13.2 % (11.5-14.5); Red Blood Cell (RBC) Count 5.54 mill/uL (4.70-6.10); White Blood Cell (WBC) Count 3.3 thou/uL (4.8-10.8)
[2022-03-31] MEDS: Zinc Sulfate 220 MG CAP PO SCH (09:37)
[2022-03-31] MEDS: Carvedilol 6.25 MG TAB PO SCH ×2 (09:37→18:12)
[2022-03-31] MEDS: Enoxaparin Sodium 30 MG/0.3 ML SYRINGE SC SCH (09:37)
[2022-03-31] MEDS: Amlodipine 10 MG TAB PO SCH (09:37)
[2022-03-31] MEDS: REMDESIVIR 100 MG in Sodium Chloride 0.9% 250 ML 230 ML IV SCH (09:37)
[2022-03-31] MEDS: Cholecalciferol (Vitamin D3) 400 UNITS TAB PO SCH (09:38)
[2022-03-31] MEDS: Clopidogrel Bisulfate 75 MG TAB PO SCH (09:38)
[2022-03-31] MEDS: Ascorbic Acid 500 mg Chewable Tablet PO SCH (09:38)
[2022-03-31] MEDS ORDERED: Potassium Chloride 20 MEQ TAB PO SCH ×2 (10:15)
[2022-03-31 11:26] LABS: Band 2 % (5-11); Eosinophils 1 % (0-10); Lymphocytes 32 % (21-51); MDiff Complete? YES; Microcytosis SLIGHT = 6-15 cells (100X) (0-5/hpf); Monocytes 4 % (0-10); Neutrophil 61 % (42-75); Platelet Morphology Comment Appears Adequate; Polychromasia SLIGHT = 2-3 cells (100X) (0-2/hpf)
[2022-03-31] MEDS: hydrALAZINE 20 MG/ML VIAL SLOW IVP PRN (13:11)
[2022-03-31] MEDS: Tamsulosin HCl 0.4 MG CAP PO SCH (20:13)
[2022-04-01] MEDS: Benzonatate 100 MG CAP PO SCH ×4 (00:36→19:25)
[2022-04-01 06:26] LABS: Anion Gap 14 mmol/L (10-20); BUN (Urea Nitrogen) 17 mg/dL (8.4-25.7); Calc. Creatinine Clearance 68 mL/min (70-130); Carbon Dioxide 23 mmol/L (23-31); Chloride 111 mmol/L (98-107); Estimated GFR 85; Glucose 94 mg/dL (83-110); Potassium 3.7 mmol/L (3.5-5.1); Sodium 144 mmol/L (136-145)
[2022-04-01] MEDS: Cholecalciferol (Vitamin D3) 400 UNITS TAB PO SCH (09:20)
[2022-04-01] MEDS: Zinc Sulfate 220 MG CAP PO SCH (09:20)
[2022-04-01] MEDS: Amlodipine 10 MG TAB PO SCH (09:20)
[2022-04-01] MEDS: Clopidogrel Bisulfate 75 MG TAB PO SCH (09:20)
[2022-04-01] MEDS: Carvedilol 6.25 MG TAB PO SCH ×2 (09:20→19:25)
[2022-04-01] MEDS: Enoxaparin Sodium 30 MG/0.3 ML SYRINGE SC SCH (09:21)
[2022-04-01] MEDS: Ascorbic Acid 500 mg Chewable Tablet PO SCH (09:21)
[2022-04-01] MEDS: Tamsulosin HCl 0.4 MG CAP PO SCH (20:29)
[2022-04-02] MEDS: Benzonatate 100 MG CAP PO SCH ×5 (00:04→23:33)
[2022-04-02] MEDS: Carvedilol 6.25 MG TAB PO SCH ×2 (08:45→16:58)
[2022-04-02] MEDS: Cholecalciferol (Vitamin D3) 400 UNITS TAB PO SCH (08:46)
[2022-04-02] MEDS: Amlodipine 10 MG TAB PO SCH (08:46)
[2022-04-02] MEDS: Ascorbic Acid 500 mg Chewable Tablet PO SCH (08:46)
[2022-04-02] MEDS: Zinc Sulfate 220 MG CAP PO SCH (08:46)
[2022-04-02] MEDS: Enoxaparin Sodium 30 MG/0.3 ML SYRINGE SC SCH (08:46)
[2022-04-02] MEDS: Clopidogrel Bisulfate 75 MG TAB PO SCH (08:46)
[2022-04-02] MEDS: Tamsulosin HCl 0.4 MG CAP PO SCH (21:24)
[2022-04-03] MEDS: Benzonatate 100 MG CAP PO SCH ×3 (05:29→18:01)
[2022-04-03] MEDS: Carvedilol 6.25 MG TAB PO SCH ×2 (08:31→18:01)
[2022-04-03] MEDS: Amlodipine 10 MG TAB PO SCH (08:31)
[2022-04-03] MEDS: Ascorbic Acid 500 mg Chewable Tablet PO SCH (08:31)
[2022-04-03] MEDS: Clopidogrel Bisulfate 75 MG TAB PO SCH (08:32)
[2022-04-03] MEDS: Zinc Sulfate 220 MG CAP PO SCH (08:32)
[2022-04-03] MEDS: Cholecalciferol (Vitamin D3) 400 UNITS TAB PO SCH (08:32)
[2022-04-03] MEDS: Enoxaparin Sodium 30 MG/0.3 ML SYRINGE SC SCH (08:32)
[2022-04-03] MEDS: Tamsulosin HCl 0.4 MG CAP PO SCH (20:46)
[2022-04-04] MEDS: Benzonatate 100 MG CAP PO SCH ×4 (01:07→14:31)
[2022-04-04] MEDS: Acetaminophen 325 MG TAB PO PRN (05:37)
[2022-04-04] MEDS: Cholecalciferol (Vitamin D3) 400 UNITS TAB PO SCH (08:46)
[2022-04-04] MEDS: Zinc Sulfate 220 MG CAP PO SCH (08:46)
[2022-04-04] MEDS: Amlodipine 10 MG TAB PO SCH (08:46)
[2022-04-04] MEDS: Ascorbic Acid 500 mg Chewable Tablet PO SCH (08:46)
[2022-04-04] MEDS: Enoxaparin Sodium 30 MG/0.3 ML SYRINGE SC SCH (08:46)
[2022-04-04] MEDS: Clopidogrel Bisulfate 75 MG TAB PO SCH (08:46)
[2022-04-04] MEDS: Carvedilol 6.25 MG TAB PO SCH ×2 (08:46→14:31)
[2022-04-04] MEDS ORDERED: Amino Acids 4.25 %/Dextrose 5% 2,000 ML BAG IV SCH (14:00)
[2022-04-04] MEDS: Amino Acids 4.25 %/Dextrose 5% 1,000 ML IV SCH (14:20)
[2022-04-04] MEDS: Tamsulosin HCl 0.4 MG CAP PO SCH (20:36)
[2022-04-05] MEDS: Benzonatate 100 MG CAP PO SCH ×4 (00:42→17:23)
[2022-04-05] MEDS: Amino Acids 4.25 %/Dextrose 5% 1,000 ML IV SCH ×3 (02:50→20:23)
[2022-04-05] MEDS: Cholecalciferol (Vitamin D3) 400 UNITS TAB PO SCH (08:51)
[2022-04-05] MEDS: Carvedilol 6.25 MG TAB PO SCH ×2 (08:51→17:47)
[2022-04-05] MEDS: Clopidogrel Bisulfate 75 MG TAB PO SCH (08:51)
[2022-04-05] MEDS: Ascorbic Acid 500 mg Chewable Tablet PO SCH (08:51)
[2022-04-05] MEDS: Amlodipine 10 MG TAB PO SCH (08:51)
[2022-04-05] MEDS: Zinc Sulfate 220 MG CAP PO SCH (08:53)
[2022-04-05 09:08] LABS: Anion Gap 17 mmol/L (10-20); BUN (Urea Nitrogen) 15 mg/dL (8.4-25.7); Calc. Creatinine Clearance 73 mL/min (70-130); Calcium 8.6 mg/dL (7.8-10.44); Carbon Dioxide 21 mmol/L (23-31); Chloride 107 mmol/L (98-107); Estimated GFR 86; Glucose 112 mg/dL (83-110); Potassium 3.5 mmol/L (3.5-5.1); Sodium 141 mmol/L (136-145)
[2022-04-05 09:18] LABS: Band 10 % (5-11); Eosinophils 2 % (0-10); Hemoglobin 12.7 g/dL (14.0-18.0); Hypochromia SLIGHT = 6-15 cells (100X) (0-5/hpf); Lymphocytes 15 % (21-51); MDiff Complete? YES; Mean Corpuscular HGB CONC 30.6 g/dL (32.0-36.0); Mean Corpuscular Hemoglobin 23.3 pg (27.0-31.0); Mean Corpuscular Volume 76.1 fL (78.0-98.0); Mean Platelet Volume 9.7 fL (7.4-10.4); Microcytosis SLIGHT = 6-15 cells (100X) (0-5/hpf); Monocytes 12 % (0-10); Neutrophil 57 % (42-75); Platelet Count 234 thou/uL (130-400); Platelet Morphology Comment Appears Adequate; Polychromasia SLIGHT = 2-3 cells (100X) (0-2/hpf); RBC Distribution Width 13.4 % (11.5-14.5); Reactive Lymphocytes 3 % (0-10); Red Blood Cell (RBC) Count 5.45 mill/uL (4.70-6.10); White Blood Cell (WBC) Count 4.5 thou/uL (4.8-10.8)
[2022-04-05] MEDS: hydrALAZINE 20 MG/ML VIAL SLOW IVP PRN (10:14)
[2022-04-05] MEDS: Enoxaparin Sodium 30 MG/0.3 ML SYRINGE SC SCH (10:14)
[2022-04-05] MEDS ORDERED: Hydrochlorothiazide 25 MG TAB PO SCH (18:45)
[2022-04-05] MEDS: Tamsulosin HCl 0.4 MG CAP PO SCH (20:24)
[2022-04-05] MEDS: Acetaminophen 325 MG TAB PO PRN (20:25)
[2022-04-06] MEDS: Benzonatate 100 MG CAP PO SCH ×5 (00:59→23:44)
[2022-04-06 07:24] LABS: Anion Gap 14 mmol/L (10-20); BUN (Urea Nitrogen) 18 mg/dL (8.4-25.7); Calc. Creatinine Clearance 76 mL/min (70-130); Calcium 8.7 mg/dL (7.8-10.44); Carbon Dioxide 23 mmol/L (23-31); Chloride 102 mmol/L (98-107); Estimated GFR 87; Glucose 124 mg/dL (83-110); Potassium 3.2 mmol/L (3.5-5.1); Sodium 136 mmol/L (136-145)
[2022-04-06] MEDS ORDERED: Potassium Chloride 20 MEQ TAB PO SCH (08:00)
[2022-04-06] MEDS: Hydrochlorothiazide 25 MG TAB PO SCH (08:27)
[2022-04-06] MEDS: Amlodipine 10 MG TAB PO SCH (08:28)
[2022-04-06] MEDS: Clopidogrel Bisulfate 75 MG TAB PO SCH (08:29)
[2022-04-06] MEDS: Cholecalciferol (Vitamin D3) 400 UNITS TAB PO SCH (08:30)
[2022-04-06] MEDS: Ascorbic Acid 500 mg Chewable Tablet PO SCH (08:30)
[2022-04-06] MEDS: Zinc Sulfate 220 MG CAP PO SCH (08:44)
[2022-04-06] MEDS: Enoxaparin Sodium 30 MG/0.3 ML SYRINGE SC SCH (08:44)
[2022-04-06] MEDS: Carvedilol 6.25 MG TAB PO SCH ×2 (11:10→18:22)
[2022-04-06] MEDS: Amino Acids 4.25 %/Dextrose 5% 1,000 ML IV SCH (14:50)
[2022-04-06] MEDS: Tamsulosin HCl 0.4 MG CAP PO SCH (20:42)
[2022-04-07] MEDS: Benzonatate 100 MG CAP PO SCH ×3 (05:42→16:09)
[2022-04-07 06:57] LABS: Anion Gap 16 mmol/L (10-20); BUN (Urea Nitrogen) 19 mg/dL (8.4-25.7); Calc. Creatinine Clearance 73 mL/min (70-130); Calcium 9.1 mg/dL (7.8-10.44); Carbon Dioxide 22 mmol/L (23-31); Chloride 101 mmol/L (98-107); Estimated GFR 86; Glucose 99 mg/dL (83-110); Potassium 3.5 mmol/L (3.5-5.1); Sodium 135 mmol/L (136-145)
[2022-04-07] MEDS: Enoxaparin Sodium 30 MG/0.3 ML SYRINGE SC SCH (07:57)
[2022-04-07] MEDS: Cholecalciferol (Vitamin D3) 400 UNITS TAB PO SCH (07:57)
[2022-04-07] MEDS: Hydrochlorothiazide 25 MG TAB PO SCH (07:58)
[2022-04-07] MEDS: Amlodipine 10 MG TAB PO SCH (07:58)
[2022-04-07] MEDS: Zinc Sulfate 220 MG CAP PO SCH (07:58)
[2022-04-07] MEDS: Clopidogrel Bisulfate 75 MG TAB PO SCH (07:58)
[2022-04-07] MEDS: Ascorbic Acid 500 mg Chewable Tablet PO SCH (07:58)
[2022-04-07] MEDS: Carvedilol 6.25 MG TAB PO SCH ×2 (07:58→16:09)
[2022-04-07 16:08] VITALS: BP 131/75; TEMP 97.5
[2022-04-08] MEDS ORDERED: Enoxaparin Sodium 40 MG/0.4 ML SYRINGE SC SCH (09:00)
== END 2022-04-07 18:01 | DRG 177 ==
LOC: ERS 17:44 → SUATTDRO 17:44 → ERHOLD 19:20 → T4-B 03-27 11:43 → OBSVTOIN 03-28 09:19
PROVIDERS: ADMIT Internal Medicine; ATTEND Internal Medicine
PROC: XW033E5 Introduction of Remdesivir Anti-infective into Peripheral Vein, Percutaneous Approach, New Technology Group 5 (ICD-10-PCS; principal; 2022-03-27)
PROC: 8E0ZXY6 Isolation (ICD-10-PCS; 2022-03-27)
DX: U07.1 COVID-19 (principal); J12.82 Pneumonia due to coronavirus disease 2019; J96.01 Acute respiratory failure with hypoxia; G93.41 Metabolic encephalopathy; M62.82 Rhabdomyolysis; J44.0 Chronic obstructive pulmonary disease with (acute) lower respiratory infection; N17.9 Acute kidney failure, unspecified; I16.1 Hypertensive emergency; F03.90 Unspecified dementia, unspecified severity, without behavioral disturbance, psychotic disturbance, mood disturbance, and anxiety; I10 Essential (primary) hypertension; E11.9 Type 2 diabetes mellitus without complications; E78.5 Hyperlipidemia, unspecified; F17.210 Nicotine dependence, cigarettes, uncomplicated; R29.6 Repeated falls; R13.10 Dysphagia, unspecified; Z91.81 History of falling; Z88.8 Allergy status to other drugs, medicaments and biological substances; Z91.018 Allergy to other foods; Z79.899 Other long term (current) drug therapy; Z79.02 Long term (current) use of antithrombotics/antiplatelets; Z79.84 Long term (current) use of oral hypoglycemic drugs
CPT/HCPCS: 36415; 36416; 51701; 70450; 71045; 80048; 80053; 81003; 81015; 82550; 83605; 83690; 83735; 83880; 84145; 84484; 85025; 86140; 87040; 87086; 93005; 96361; 96372; 96374; 96376; 97139; G0378; J0248; J0360; J1650; J7050; U0002

== ENCOUNTER 2024-04-16 15:01 | Emergency (ER) | payer MEDICARE, OTHER ==
[2024-04-16 16:02] LABS: #Basophils Less than 0.03 10x3/uL (0.0-0.2); #Eosinphils Less than 0.03 10x3/uL (0.0-0.7); %Basophils 0.1 % (0.0-1.0); %Lymphocytes 5.6 % (21.0-51.0); %Monocytes 9.6 % (0.0-10.0); %Neutrophils 84.4 % (42.0-75.0); Hematocrit 42.7 % (42.0-52.0); Mean Corpuscular HGB CONC 32.8 g/dL (32.0-36.0); Mean Corpuscular Hemoglobin 23.8 pg (27.0-31.0); Mean Corpuscular Volume 72.6 fL (78.0-98.0); Mean Platelet Volume 10.1 fL (7.4-10.4); Platelet Count 250 10x3/uL (130-400); RBC Distribution Width 14.6 % (11.5-14.5); Red Blood Cell (RBC) Count 5.88 mill/uL (4.70-6.10)
[2024-04-16 16:25] LABS: Anisocytosis SLIGHT = 6-15 cells HPF (0-5); Microcytosis SLIGHT = 6-15 cells HPF (0-5); Platelet Adequacy Comment Platelets Normal; Polychromasia SLIGHT = 2-3 cells HPF (0-2)
[2024-04-16 16:26] LABS: ALT (SGPT) 9 U/L (8-55); AST (SGOT) 24 U/L (5-34); Albumin 3.5 g/dL (3.4-4.8); Alkaline Phosphatase 83 U/L (40-110); Anion Gap 20 mmol/L (10-20); BUN (Urea Nitrogen) 23 mg/dL (8.4-25.7); Bilirubin, Total 0.4 mg/dL (0.2-1.2); Calc. Creatinine Clearance 0 mL/min (70-130); Calcium 9.6 mg/dL (7.8-10.44); Carbon Dioxide 20 mmol/L (23-31); Chloride 106 mmol/L (98-107); Estimated GFR 45; Globulin 4.7 g/dL (2.4-3.5); Glucose 120 mg/dL (83-110); Potassium 4.5 mmol/L (3.5-5.1); Protein, Total 8.2 g/dL (5.8-8.1); Sodium 141 mmol/L (136-145)
[2024-04-16 17:58] LABS: Bilirubin Negative (Negative); Blood, Urine 1+ (Negative); CAUTI Indications for Culture Acute Hematuria; Clarity Turbid (Clear); Glucose, Urine (Dipstick) Normal (Negative); Ketone, Urine Negative (Negative); Leukocyte 500 Leu/uL (Negative); Nitrite Negative (Negative); Protein, Urine (Dipstick) 30 mg/dL (Neg-Trace); Specific Gravity, Urine 1.019 (1.002-1.036); Urobilinogen Normal mg/dL (Less than 2); WBC/HPF Greater than 50 HPF (0-3); pH, Urine 5.5 (5.0-9.0)
[2024-04-16 18:08] LABS: Bacteria/HPF 1+ HPF (None Seen)
[2024-04-16 18:09] LABS: Urine Culture Reflex Yes Yes
[2024-04-16] MEDS ORDERED: Metoprolol Tartrate 5 MG (5 mL) VIAL ONE (18:15)
[2024-04-16 20:54] LABS: Influenza A by NAA Not Detected (NotDetected); Influenza B by NAA Not Detected (NotDetected); SARS-CoV-2 NAA Rapid Test DETECTED (NotDetected)
== END 2024-04-16 21:04 | disposition home or self-care (01) ==
LOC: ERS 15:01
DX: E86.0 Dehydration (principal); I10 Essential (primary) hypertension; E11.9 Type 2 diabetes mellitus without complications; F17.210 Nicotine dependence, cigarettes, uncomplicated
CPT/HCPCS: 0240U; 70450; 71045; 72125; 80053; 81001; 85025; 87086; 93005; 96361; 96374